=== PATIENT | female | born 1970 | race Hispanic/Latino ===

== ENCOUNTER 2019-06-19 00:53 | Emergency (ER) | payer SELFPAY ==
[2019-06-19 01:00] VITALS: BP 109/68
[2019-06-19] MEDS ORDERED: MORPHINE 4 MG/1 ML INJ IV ONE (01:16)
[2019-06-19] MEDS ORDERED: SODIUM CHLORIDE 0.9% 1000 ML 1,000 ML IV ONE (01:16)
[2019-06-19] MEDS ORDERED: ONDANSETRON 4 MG/2 ML INJ IV ONE (01:16)
[2019-06-19 01:35] LABS: Bilirubin,Urine NEG (Negative); Blood,Urine NEG (Negative); Color,Urine Amber (Yellow); Mucus,Urine FEW /HPF; Protein,Urine <15 mg/dL mg/dL (Negative); Urobilinogen,Urine < 2.0 mg/dL (<2.0)
[2019-06-19 01:41] LABS: Basophils # (Auto) 0.1 K/mm3 (0.0-0.1); Basophils % (Auto) 0.8 % (0.0-1.8); Eosinophils # (Auto) 0.6 K/mm3 (0.0-0.4); Eosinophils % (Auto) 5.5 % (0.0-4.3); Hematocrit 36.6 % (30.3-42.9); Hemoglobin 12.3 gm/dl (10.1-14.3); Lymphocytes # (Auto) 3.7 K/mm3 (1.2-5.4); Lymphocytes % (Auto) 32.8 % (13.4-35.0); Mean Corpuscular HGB Conc 34 % (30-34); Mean Corpuscular Volume 91 fl (79-97); Monocytes # (Auto) 0.9 K/mm3 (0.0-0.8); Monocytes % (Auto) 7.8 % (0.0-7.3); Platelet Count 384 K/mm3 (140-440); Red Blood Count 4.01 M/mm3 (3.65-5.03); Red Cell Distribution Width 14.3 % (13.2-15.2)
[2019-06-19 01:53] LABS: Alanine Aminotransferase 29 units/L (7-56); Albumin 3.8 g/dL (3.9-5); BUN/Creatinine Ratio 25; Blood Urea Nitrogen 15 mg/dL (7-17); Calcium 8.7 mg/dL (8.4-10.2); Hemolysis Index 4
[2019-06-19 02:19] LABS: Bilirubin,Direct < 0.2 mg/dL (0-0.2)
--- NOTE | 2019-06-19 02:45 | Emergency Department Report ---
ED Abdominal Pain HPI - General Chief Complaint: Abdominal Pain Stated Complaint: ABDOMINAL PAIN Time Seen by Provider: 06/19/19 01:15 Source: patient Mode of arrival: Ambulatory Limitations: No Limitations - History of Present Illness Initial Comments: This is a 48-year-old female nontoxic, well nourished in appearance, no acute signs of distress presents to the ED with c/o of nausea and vomiting and abdominal pain 1 day. Patient describes vomiting as food content and yellow gastric acid. Patient describes abdominal pain as cramping and aching with level of 8/10 to left lower abdominal area. Patient denies chest pain, short of breath, fever, chills, headache, stiff neck, numbness or tingling. Patient denies any diarrhea or constipation. Patient denies any recent travels. Patient denies any allergies or significant past medical history. MD Complaint: abdominal pain -: days(s) (1) Location: RLQ Radiation: none Migration to: no migration Severity: mild Severity scale (0 -10): 8 Quality: cramping, aching Consistency: constant Improves With: nothing Worsens With: nothing Associated Symptoms: nausea, vomiting. denies: diarrhea, fever, chills, constipation, dysuria, hematemesis, hematochezia, melena, hematuria, anorexia, syncope - Related Data Previous Rx's Medication Instructions Recorded Last Taken Type Ondansetron [Zofran Odt] 4 mg PO Q8HR PRN #20 tab.rapdis 06/19/19 Unknown Rx Allergies Allergy/AdvReac Type Severity Reaction Status Date / Time No Known Allergies Allergy Unverified 07/21/18 09:51 ED Review of Systems ROS: Stated complaint: ABDOMINAL PAIN Other details as noted in HPI Constitutional: denies: chills, fever Eyes: denies: eye pain, eye discharge, vision change ENT: denies: ear pain, throat pain Respiratory: denies: cough, shortness of breath, wheezing Cardiovascular: denies: chest pain, palpitations Endocrine: no symptoms reported Gastrointestinal: abdominal pain, nausea, vomiting. denies: diarrhea Genitourinary: denies: urgency, dysuria, discharge Musculoskeletal: denies: back pain, joint swelling, arthralgia Skin: denies: rash, lesions Neurological: denies: headache, weakness, paresthesias Psychiatric: denies: anxiety, depression Hematological/Lymphatic: denies: easy bleeding, easy bruising ED Past Medical Hx - Past Medical History Previous Medical History?: No - Surgical History Past Surgical History?: Yes Additional Surgical History: endometriosis, tubaligation - Social History Smoking Status: Current Every Day Smoker Substance Use Type: None - Medications Home Medications: Home Medications Medication Instructions Recorded Confirmed Last Taken Type Ondansetron [Zofran Odt] 4 mg PO Q8HR PRN #20 tab.rapdis 06/19/19 Unknown Rx ED Physical Exam - General Limitations: No Limitations General appearance: alert, in no apparent distress - Head Head exam: Present: atraumatic, normocephalic - Neck Neck exam: Present: normal inspection. Absent: tenderness, meningismus, lymphadenopathy - Respiratory Respiratory exam: Present: normal lung sounds bilaterally. Absent: respiratory distress, wheezes, rales, rhonchi, stridor, chest wall tenderness, accessory muscle use, decreased breath sounds, prolonged expiratory - Cardiovascular Cardiovascular Exam: Present: regular rate, normal rhythm, normal heart sounds. Absent: bradycardia, tachycardia, irregular rhythm, systolic murmur, diastolic murmur, rubs, gallop - GI/Abdominal GI/Abdominal exam: Present: soft, tenderness (RLQ), normal bowel sounds. Absent: distended, guarding, rebound, rigid, diminished bowel sounds - Extremities Exam Extremities exam: Present: normal inspection, full ROM - Back Exam Back exam: Present: normal inspection, full ROM. Absent: tenderness, CVA tenderness (R), CVA tenderness (L), muscle spasm, paraspinal tenderness, vertebral tenderness, rash noted - Neurological Exam Neurological exam: Present: alert, oriented X3, normal gait - Psychiatric Psychiatric exam: Present: normal affect, normal mood - Skin Skin exam: Present: warm, dry, intact, normal color. Absent: rash ED Course Vital Signs 06/19/19 00:58 Temperature 97.8 F Pulse Rate 63 Respiratory 16 Rate Blood Pressure 109/68 O2 Sat by Pulse 95 Oximetry - Reevaluation(s) Reevaluation #1: 06/19/19 02:45 Patient is speaking in full sentences with no signs of distress noted. ED Medical Decision Making - Lab Data Result diagrams: 06/19/19 01:19 06/19/19 01:19 - Medical Decision Making This is a 48-year-old female that presents with abdominal pain and n/v. Patient is stable and was examined by me. There is no abdominal tenderness. Negative signs of symptoms of appendicitis. Labs obtained. UA obtained. CT of abdomen obtained and dictated by the radiologist. Patient is notified of the report with no questions noted by the patient. Vital signs are stable prior to discharge. Patient received medical treatment in the ED which patient stated symptoms has resovled and subsided. Was instructed note to operate any machinery due to possible drowsiness and stated someone will drive the patient home. A by mouth challenge has been obtained and patient tolerated well with no nausea vomiting. Patient was also instructed to Follow-up with a primary care doctor in 3-5 days or if symptoms worsen and continue return to emergency room as soon as possible. At time of discharge, the patient does not seem toxic or ill in appearance. No acute signs of distress noted. Patient agrees to discharge treatment plan of care. No further questions noted by the patient. Critical care attestation.: If time is entered above; I have spent that time in minutes in the direct care of this critically ill patient, excluding procedure time. ED Disposition Clinical Impression: Abdominal pain Qualifiers: Abdominal location: left lower quadrant Qualified Code(s): R10.32 - Left lower quadrant pain Nausea & vomiting Qualifiers: Vomiting type: unspecified Vomiting Intractability: non-intractable Qualified Code(s): R11.2 - Nausea with vomiting, unspecified Disposition: DC-01 TO HOME OR SELFCARE Is pt being admited?: No Does the pt Need Aspirin: No Condition: Stable Instructions: Abdominal Pain (ED), Acute Nausea and Vomiting (ED) Additional Instructions: Follow-up with a primary care doctor in 3-5 days or if symptoms worsen and continue return to emergency room as soon as possible. Prescriptions: Ondansetron [Zofran Odt] 4 mg PO Q8HR PRN #20 tab.rapdis PRN Reason: Nausea Referrals: PRIMARY CARE, [Primary Care Provider] - 3-5 Days LALO STEWART MD [Staff Physician] - 3-5 Days [facility] [Outside] - 3-5 Days [facility] [Outside] - 3-5 Days Forms: Work/School Release Form(ED)
--- NOTE | 2019-06-19 03:01 | Cat Scan Report ---
CT ABDOMEN AND PELVIS WITH CONTRAST HISTORY: Left lower quadrant abdominal pain COMPARISON: None TECHNIQUE: Routine abdominal and pelvic CT exam performed after administration of 100 mL of IV Omnipa que 300. All CT scans at this location are performed using CT dose reduction for ALARA by means of au tomated exposure control. FINDINGS: CT ABDOMEN: Lung Bases: No significant abnormality. Liver: No significant abnormality. Biliary: No significant abnormality. Spleen: No significant abnormality. Unenlarged. Pancreas: No significant abnormality. Adrenals: No significant abnormality. Kidneys: No significant abnormality. Lymphatics: No lymphadenopathy. Vasculature: No significant abnormality. Bowel/Peritoneum: No significant abnormality. No free air. No free fluid. Normal appendix. CT PELVIC: : No significant abnormality. Lymphatics: No lymphadenopathy. Osseous Structures: No aggressive appearing osseous lesions. Additional Findings: None IMPRESSION: 1. No acute or concerning abnormality in the abdomen and pelvis. Signer Name: Bartolo Márquez MD Signed: 06/19/2019 2:56 AM Workstation Name: [email or web address]
== END 2019-06-19 03:50 | disposition home or self-care (01) ==
LOC: ED 00:53
DX: R10.31 Right lower quadrant pain (principal); R11.2 Nausea with vomiting, unspecified; F17.200 Nicotine dependence, unspecified, uncomplicated; Z98.51 Tubal ligation status
CPT/HCPCS: 36415; 74177; 80048; 80076; 81001; 83690; 84703; 85025; 96361; 96374; 96375; 99284; J2405; J7030; Q9967

== ENCOUNTER 2021-04-16 12:38 | Emergency (ER) | payer SELFPAY ==
[2021-04-16 14:09] VITALS: BP 130/68
[2021-04-16 14:54] LABS: Mucus,Urine FEW /HPF
[2021-04-16 15:32] LABS: Amorphous Crystals,Urine 1+; Bilirubin,Urine NEG (Negative); Blood,Urine NEG (Negative); Color,Urine Yellow (Yellow); Protein,Urine <15 mg/dL mg/dL (Negative); Urobilinogen,Urine < 2.0 mg/dL (<2.0)
[2021-04-16] MEDS ORDERED: dexAMETHasone 4 MG/ML VIAL IM STA (15:49)
[2021-04-16] MEDS ORDERED: KETOROLAC 60 MG/2 ML INJ IM ONE (15:49)
[2021-04-16] MEDS ORDERED: HYDROcodone/ACETAMINOPHEN 5-325 MG TAB PO ONE (15:54)
--- NOTE | 2021-04-16 15:54 | Emergency Department Report ---
ED General Adult HPI - General Chief complaint: Abdominal Pain Stated complaint: SEVERE PAIN POSS KIDNEY STONE Time Seen by Provider: 04/16/21 15:45 Source: patient Mode of arrival: Ambulatory Limitations: No Limitations - History of Present Illness Initial comments: 50-year-old female patient presents with complaints of left lower back pain and buttock pain x5 days. Patient denies any spinal injuries, however states her pain did seem to begin after lifting her adult son. She denies any numbness/tingling/weakness in her limbs, difficulty with ambulation, or loss of bladder/bowel control. She rates her current pain as a 9/10 in severity and states ibuprofen is not helping. No prior history of sciatica per patient. She also denies any fever/chills/sweats or history of cancer Radiation: extremity (Left leg) - Related Data Previous Rx's Medication Instructions Recorded Last Taken Type Ondansetron [Zofran Odt] 4 mg PO Q8HR PRN #20 tab.rapdis 06/19/19 Unknown Rx Naproxen [Naprosyn TAB] 500 mg PO BID #20 tablet 04/16/21 Unknown Rx Prednisone [predniSONE 10 mg 10 mg PO .TAPER #1 tab.ds.pk 04/16/21 Unknown Rx (6-Day Pack, 21 Tabs)] methOCARBAMOL [Robaxin TAB] 750 - 1,500 mg PO Q8H PRN #30 04/16/21 Unknown Rx tablet Allergies Allergy/AdvReac Type Severity Reaction Status Date / Time No Known Allergies Allergy Verified 04/16/21 14:03 ED Review of Systems ROS: Stated complaint: SEVERE PAIN POSS KIDNEY STONE Other details as noted in HPI Constitutional: denies: chills, fever, malaise Gastrointestinal: denies: abdominal pain, nausea, vomiting Genitourinary: denies: urgency, dysuria, frequency, hematuria, discharge Musculoskeletal: back pain Neurological: denies: numbness, paresthesias ED Past Medical Hx - Past Medical History Previous Medical History?: No - Surgical History Past Surgical History?: No Additional Surgical History: endometriosis, tubaligation - Social History Smoking Status: Current Every Day Smoker Substance Use Type: None - Medications Home Medications: Home Medications Medication Instructions Recorded Confirmed Last Taken Type Ondansetron [Zofran Odt] 4 mg PO Q8HR PRN #20 tab.rapdis 06/19/19 Unknown Rx Naproxen [Naprosyn TAB] 500 mg PO BID #20 tablet 04/16/21 Unknown Rx Prednisone [predniSONE 10 mg 10 mg PO .TAPER #1 tab.ds.pk 04/16/21 Unknown Rx (6-Day Pack, 21 Tabs)] methOCARBAMOL [Robaxin TAB] 750 - 1,500 mg PO Q8H PRN #30 04/16/21 Unknown Rx tablet ED Physical Exam - General Limitations: No Limitations General appearance: alert, in no apparent distress - Head Head exam: Present: atraumatic, normocephalic - Eye Eye exam: Present: normal appearance. Absent: scleral icterus - Respiratory Respiratory exam: Absent: respiratory distress - Cardiovascular Cardiovascular Exam: Present: regular rate - Extremities Exam Extremities exam: Present: full ROM - Back Exam Back exam: Present: paraspinal tenderness (Left lower lumbar). Absent: CVA tenderness (R), CVA tenderness (L), vertebral tenderness - Expanded Back Exam Expanded Back exam: Absent: saddle anesthesia Back exam: Sciatic Notch Tenderness: Left, Positive Straight Leg Raise: Left - Neurological Exam Neurological exam: Present: alert, oriented X3. Absent: abnormal gait (Antalgic) - Psychiatric Psychiatric exam: Present: normal affect, normal mood ED Course Vital Signs 04/16/21 14:07 Temperature 98.7 F Pulse Rate 85 Respiratory 20 Rate Blood Pressure 130/68 O2 Sat by Pulse 100 Oximetry ED Medical Decision Making - Medical Decision Making 50-year-old female patient presents with complaints of left lower back pain and buttock pain x5 days. Patient denies any spinal injuries, however states her pain did seem to begin after lifting her adult son. She denies any numbness/tingling/weakness in her limbs, difficulty with ambulation, or loss of bladder/bowel control. She rates her current pain as a 9/10 in severity and states ibuprofen is not helping. No prior history of sciatica per patient. She also denies any fever/chills/sweats or history of cancer History and physical are consistent with sciatica. Meds given here in ED. Pain improved. She is well-appearing, her vitals are within normal limits, she is stable for discharge home. Recommend follow-up with her primary care doctor in 3 to 5 days. Diagnosis of sciatica discussed in detail with patient and she denies any further questions at this time. Strict return precautions were discussed in detail with patient who verbalized understanding. Critical care attestation.: If time is entered above; I have spent that time in minutes in the direct care of this critically ill patient, excluding procedure time. ED Disposition Clinical Impression: Sciatica, left side Disposition: DC- TO HOME OR SELFCARE Is pt being admited?: No Condition: Stable Instructions: Sciatica, Abdominal Pain (ED) Prescriptions: Naproxen [Naprosyn TAB] 500 mg PO BID #20 tablet Prednisone [predniSONE 10 mg (6-Day Pack, 21 Tabs)] 10 mg PO .TAPER #1 tab.ds.pk methOCARBAMOL [Robaxin TAB] 750 - 1,500 mg PO Q8H PRN #30 tablet PRN Reason: muscle spasm/tightness Referrals: PRIMARY CARE, [Referring] - 3-5 Days
== END 2021-04-16 16:20 | disposition home or self-care (01) ==
LOC: ED 12:38
DX: M54.42 Lumbago with sciatica, left side (principal); F17.200 Nicotine dependence, unspecified, uncomplicated; Z98.890 Other specified postprocedural states
CPT/HCPCS: 81001; 96372; 99283; J1100; J1885